=== PATIENT | female | born 1995 | race Caucasian/White ===

== ENCOUNTER 2018-08-26 12:44 | Emergency (ER) | payer OTHER ==
[2018-08-26 12:55] VITALS: RESP 18
[2018-08-26] MEDS ORDERED: IBUPROFEN 800 MG TAB PO STA (13:17)
--- NOTE | 2018-08-26 13:53 | XR ---
EXAMINATION TYPE: XR foot complete RT DATE OF EXAM: 08/26/2018 COMPARISON: NONE HISTORY: Pain TECHNIQUE: Three views are submitted. FINDINGS: The osseous structures are intact. There is no acute fracture or dislocation. Joint spaces are p reserved. There is a flexion deformity of the second DIP joint which could be positional correlate cl inically. IMPRESSION: 1. No acute fracture or dislocation. If symptoms persist, follow-up exam in 7 to 10 days could be ob tained. 2. Flexion deformity DIP joint second digit. This may be positional correlate clinically to exclude s oft tissue injury
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
--- NOTE | 2018-08-26 15:02 | XR ---
EXAMINATION TYPE: XR ankle complete RT DATE OF EXAM: 08/26/2018 COMPARISON: NONE HISTORY: Pain FINDINGS: Ankle mortise is anatomic. I see no fracture nor dislocation. Joint spaces are fairly normal. IMPRESSION: Negative right ankle exam.
[2018-08-26 15:22] VITALS: BP 121/82; PULSE 87; TEMP 97.9
== END 2018-08-26 15:15 | disposition home or self-care (01) ==
LOC: EC 12:44
DX: S93.401A Sprain of unspecified ligament of right ankle, initial encounter (principal); F17.200 Nicotine dependence, unspecified, uncomplicated; Z79.899 Other long term (current) drug therapy; V43.62XA Car passenger injured in collision with other type car in traffic accident, initial encounter; W22.19XA Striking against or struck by other automobile airbag, initial encounter; Y92.410 Unspecified street and highway as the place of occurrence of the external cause
CPT/HCPCS: 99283